=== PATIENT | female | born 1970 | race Hispanic/Latino ===

== ENCOUNTER 2018-02-08 19:37 | Emergency (ER) | payer SELFPAY ==
[2018-02-08] MEDS ORDERED: HYDROMORPHONE HCL 1 MG/ML INJ ONE (20:08)
[2018-02-08] MEDS ORDERED: TETANUS & DIPHTHERIA TOX,ADULT 0.5 ML VIAL ONE (20:08)
--- NOTE | 2018-02-08 20:54 | RAD REPORT ---
EXAM DESCRIPTION: RAD - Tib Fib Left - 02/08/2018 8:37 pm CLINICAL HISTORY: PAIN COMPARISON: None FINDINGS: No fracture, dislocation or radiopaque foreign body seen. No subcutaneous gas is seen. Pro minent calcaneal spurs are evident.
--- NOTE | 2018-02-08 21:07 | ER ---
Nurse's Notes [facility] Name: Alina Nino Age: 47 yrs Sex: Female : 1970 Arrival Date: 02/08/2018 Time: 19:41 Bed 26 Private MD: Diagnosis: Bitten by other marine mammals Presentation: 02/08 19:45 Presenting complaint: states: that they were fishing and pt got stuck by fc something on her left inner ankle. Small amt of blood noted and dressing intact. Transition of care: patient was not received from another setting of care. Onset of symptoms was February 08, 2018 at 18:30. Risk Assessment: Do you want to hurt yourself or someone else? Patient reports no desire to harm self or others. Initial Sepsis Screen: Does the patient meet any 2 criteria? HR > 90 bpm. Yes Does the patient have a suspected source of infection? No. Patient's initial sepsis screen is negative. Care prior to arrival: Bleeding of injury controlled. Injury dressed. 19:45 Method Of Arrival: Wheelchair 19:45 Acuity: RXE 4 Triage Assessment: 21:18 General: Appears in no apparent distress. uncomfortable, Behavior is calm, cooperative. rv Pain: Complains of pain in left foot. 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 - Social history:: Smoking status: Patient/guardian denies using tobacco, Patient/guardian denies using alcohol. - Ebola Screening: : Patient negative for fever greater than or equal to 101.5 degrees Fahrenheit, and additional compatible Ebola Virus Disease symptoms Patient denies exposure to infectious person Patient denies travel to an Ebola-affected area in the 21 days before illness onset. Screenin:18 Abuse screen: Denies threats or abuse. Denies injuries from another. Nutritional rv screening: No deficits noted. Tuberculosis screening: No symptoms or risk factors identified. Fall Risk None identified. Assessment: 19:55 Reassessment: Pt's foot placed in hot water. 20:30 Reassessment: ALL CURRENT ORDERS COMPLETED, PT CONTINUES TO C/O PAIN/SWELLING PROXIMAL aj1 TO WOUND SITE. 21:22 Reassessment: PT D/C HOME VIA W/C WITH FAMILY, DX WITH STINGRAY INJURY AND PUNCTURE aj1 WOUND. Vital Signs: 19:45 BP 156 / 113; Pulse 108; Resp 20; Temp 98.7(O); Pulse Ox 100% on R/A; Weight 66.22 kg fc (R); Height 5 ft. 0 in. (152.40 cm) (R); Pain 10/10; 20:30 BP 146 / 98; Pulse 103; Resp 24; Pulse Ox 100% ; aj1 20:55 BP 134 / 92; Pulse 89; Resp 14; Pulse Ox 100% ; aj1 21:17 BP 137 / 92; rv 19:45 Body Mass Index 28.51 (66.22 kg, 152.40 cm) ED Course: 19:41 Patient arrived in ED. es 19:45 Arm band placed on Patient placed in an exam room, on a stretcher. fc 19:49 Lakhwinder Acosta MD is Attending Physician. gs 20:00 Patient has correct armband on for positive identification. Placed in gown. Bed in low aj1 position. Call light in reach. Side rails up X2. Adult w/ patient. 20:00 Wound care: to puncture located on left medial ankle was soaked in HOT WATER. aj1 20:01 Octavia Stevenson RN is Primary Nurse. aj1 20:04 Triage completed. fc 20:37 Tib Fib Left XRAY In Process Unspecified. EDMS 20:54 Octavia Stevenson RN is Primary Nurse. aj1 21:22 No provider procedures requiring assistance completed. Patient did not have IV access aj1 during this emergency room visit. 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 Exp: aj1 03/19/2020. Lot #: [id number]. } Route: IM; Site: left deltoid; 21:19 Follow up: Response: Pain is decreased aj1 20:11 Drug: Dilaudid 1 mg Route: IM; Site: left vastus lateralis; aj1 21:19 Follow up: Response: Pain is decreased aj1 21:21 Drug: [place] 10 mg-325 mg 1 tabs Route: PO; aj1 21:21 Follow up: Response: Medication administered at discharge. aj1 21:21 Not Given (Duplicate Order): [place] 10 mg-325 mg 1 tabs PO once aj1 Outcome: 21:06 Discharge ordered by . 21:23 Discharged to home via wheelchair. aj1 21:23 Condition: stable 21:23 Discharge instructions given to patient, family, Instructed on discharge instructions, follow up and referral plans. medication usage, Demonstrated understanding of instructions, follow-up care, medications, Prescriptions given X 3. 21:24 Patient left the ED. aj1 Signatures: Dispatcher [employer] Octavia Wang RN RN aj1 Clarissa Lo Felicia, RN RN Lakhwinder Acosta MD MD gs Vicente, Ronaldo RN RN rv Corrections: (The following items were deleted from the chart) 20:29 20:28 Wound care: to puncture located on left medial ankle was soaked in HOT WATER aj1 aj1
--- NOTE | 2018-02-08 21:07 | EDPHYS ---
Physician Documentation [facility] Name: Alina Nino Age: 47 yrs Sex: Female : 1970 Arrival Date: 02/08/2018 Time: 19:41 Bed 26 Private MD: ED Physician Lakhwinder Acosta HPI: 02/08 20:57 This 47 yrs old Female presents to ER via Wheelchair with complaints of gs STINGRAY BITE. 20:57 The patient was bitten on the left medial ankle, by an unknown animal, marine gs envenomation stingray or catfish. Onset: The symptoms/episode began/occurred acutely, just prior to arrival. Secondary to the bite the patient reports a puncture wound, that is moderate-sized. Associated signs and symptoms: Pertinent positives: pain at site, Pertinent negatives: motor deficit, numbness distal to wound. Severity of symptoms: At their worst the symptoms were moderate, in the emergency department the symptoms are unchanged. The patient has not experienced similar symptoms in the past. The patient has not recently seen a physician. 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 - Social history:: Smoking status: Patient/guardian denies using tobacco, Patient/guardian denies using alcohol. - Ebola Screening: : Patient negative for fever greater than or equal to 101.5 degrees Fahrenheit, and additional compatible Ebola Virus Disease symptoms Patient denies exposure to infectious person Patient denies travel to an Ebola-affected area in the 21 days before illness onset. ROS: 20:57 All other systems are negative. gs Exam: 20:57 Head/Face: Normocephalic, atraumatic. Eyes: Pupils equal round and reactive to light, gs extra-ocular motions intact. Lids and lashes normal. Conjunctiva and sclera are non-icteric and not injected. Cornea within normal limits. Periorbital areas with no swelling, redness, or edema. ENT: Nares patent. No nasal discharge, no septal abnormalities noted. Tympanic membranes are normal and external auditory canals are clear. Oropharynx with no redness, swelling, or masses, exudates, or evidence of obstruction, uvula midline. Mucous membranes moist. Neck: Trachea midline, no thyromegaly or masses palpated, and no cervical lymphadenopathy. Supple, full range of motion without nuchal rigidity, or vertebral point tenderness. No Meningismus. Chest/axilla: Normal chest wall appearance and motion. Nontender with no deformity. No lesions are appreciated. Cardiovascular: Regular rate and rhythm with a normal S1 and S2. No gallops, murmurs, or rubs. Normal PMI, no JVD. No pulse deficits. Respiratory: Lungs have equal breath sounds bilaterally, clear to auscultation and percussion. No rales, rhonchi or wheezes noted. No increased work of breathing, no retractions or nasal flaring. Abdomen/GI: Soft, non-tender, with normal bowel sounds. No distension or tympany. No guarding or rebound. No evidence of tenderness throughout. Back: No spinal tenderness. No costovertebral tenderness. Full range of motion. Neuro: Awake and alert, GCS 15, oriented to person, place, time, and situation. Cranial nerves II-XII grossly intact. Motor strength 5/5 in all extremities. Sensory grossly intact. Cerebellar exam normal. Normal gait. 20:57 Constitutional: The patient appears alert, awake, uncomfortable. 20:57 Musculoskeletal/extremity: Extremities: noted in the left medial ankle: pain, swelling, ROM: no acute changes, Pulses: are normal with no appreciated deficits, Sensation intact. 20:57 Skin: injury, puncture(s), of the left medial ankle, 2cm. Vital Signs: 19:45 BP 156 / 113; Pulse 108; Resp 20; Temp 98.7(O); Pulse Ox 100% on R/A; Weight 66.22 kg fc (R); Height 5 ft. 0 in. (152.40 cm) (R); Pain 10/10; 20:30 BP 146 / 98; Pulse 103; Resp 24; Pulse Ox 100% ; aj1 20:55 BP 134 / 92; Pulse 89; Resp 14; Pulse Ox 100% ; aj1 21:17 BP 137 / 92; rv 19:45 Body Mass Index 28.51 (66.22 kg, 152.40 cm) MDM: 19:59 Patient medically screened. gs 21:04 Data reviewed: vital signs, nurses notes. Response to treatment: the patient's symptoms gs have markedly improved after treatment, pain controlled will discharge. 21:04 Differential diagnosis: marine envenomation,fb retention,puncture wound. 02/08 19:59 Order name: Tib Fib Left XRAY; Complete Time: 20:57 02/08 19:59 Order name: Misc. 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 Exp: aj1 03/19/2020. Lot #: [id number]. } Route: IM; Site: left deltoid; :19 Follow up: Response: Pain is decreased [facility] :11 Drug: Dilaudid 1 mg Route: IM; Site: left vastus lateralis; aj1 21:19 Follow up: Response: Pain is decreased [facility] 21:21 Drug: [place] 10 mg-325 mg 1 tabs Route: PO; aj1 21:21 Follow up: Response: Medication administered at discharge. aj1 21:21 Not Given (Duplicate Order): [place] 10 mg-325 mg 1 tabs PO once aj1 Disposition: 02/08/18 21:06 Discharged to Home. Impression: Bitten by other marine mammals. - Condition is Stable. - Discharge Instructions: Marine Life Injury, [id number]. - Prescriptions for Keflex 500 mg Oral Capsule - take 1 capsule by ORAL route every 12 hours for 7 days; 14 capsule. Doxycycline Monohydrate 100 mg Oral Tablet - take 1 tablet by ORAL route every 12 hours for 7 days; 14 tablet. Tylenol- Codeine #4 300-60 mg Oral Tablet - take 1 tablet by ORAL route every 6 hours As needed; 6 tablet. - Medication Reconciliation Form, Thank You Letter, Antibiotic Education, Prescription Opioid Use form. - Follow up: Private Physician; When: 2 - 3 days; Reason: Re-evaluation by your physician. Signatures: Dispatcher [employer] Octavia Wang RN RN aj1 Ashley Mcgee RN RN fc Starr, Gregory, MD MD Corrections: (The following items were deleted from the chart) 21:24 21:06 02/08/2018 21:06 Discharged to Home. Impression: Bitten by other marine mammals. aj1 Condition is Stable. Forms are Medication Reconciliation Form, Thank You Letter, Antibiotic Education, Prescription Opioid Use. Follow up: Private Physician; When: 2 - 3 days; Reason: Re-evaluation by your physician. gs
[2018-02-08] MEDS ORDERED: HYDROCODONE/APAP 10/325 TAB ONE (21:20)
== END 2018-02-08 21:24 | disposition home or self-care (01) ==
LOC: ER 19:37
DX: S91.052A Open bite, left ankle, initial encounter (principal); T63.511A Toxic effect of contact with stingray, accidental (unintentional), initial encounter; W56.31XA Bitten by other marine mammals, initial encounter; Y93.11 Activity, swimming; Y92.832 Beach as the place of occurrence of the external cause; E11.9 Type 2 diabetes mellitus without complications; Z79.84 Long term (current) use of oral hypoglycemic drugs; Z23 Encounter for immunization
CPT/HCPCS: 90714; 96372; 99284; J1170